=== PATIENT | female | born 1980 | race Two or more races ===

== ENCOUNTER 2018-10-03 02:34 | Emergency (ER) | payer BC ==
[~2018-10-03] VITALS: Ht 157.5 cm; Wt 52.6 kg
--- OUTSIDE RECORDS SUMMARY | 2018-10-03 02:36 | XMS REPORT ---
Author [facility] Address Unknown Phone Unavailable Care Team Providers Care [facility] Diversity Name Role Phone Unavailable Unavailable Payers Payer Name Policy Type Policy Number Effective Date Expiration Date Problems This patient has no known problems. Allergies, Adverse Reactions, Alerts Allergy Name Allergy Type Status Severity Reaction(s) Onset Date Inactive Date Treating Clinician Comments No Known Allergies DA Active U 2018-04-12 00:00:00 Medications This patient has no known medications. Results Test Description Test Time Test Comments Text Results Atomic Results Result Comments COMPREHENSIVE METABOLIC PANEL 2018-04-13 01:00:00 SODIUM (test code=NA) 137 mEq/L 134-147 POTASSIUM (test code=K) 3.4 mEq/L 3.4-5.0 CHLORIDE (test code=CL) 107 mEq/L 100-108 CARBON DIOXIDE (test code=CO2) 24 mEq/L 21-33 ANION GAP (test code=GAP) 9 0-20 GLUCOSE (test code=GLU) 114 mg/dL 70-110 BLOOD UREA NITROGEN (test code=BUN) 9 mg/dL 7-18 GLOMERULAR FILTRATION RATE (test code=GFR) 79.9 105-110 Units of measure=ml/min/1.73 m2 CREATININE (test code=CREAT) 0.8 mg/dL 0.6-1.3 TOTAL PROTEIN (test code=PROT) 8.0 g/dL 6.4-8.2 ALBUMIN (test code=ALB) 3.50 g/dL 3.4-5.0 CALCIUM (test code=CA) 8.3 mg/dL 8.0-10.5 BILIRUBIN TOTAL (test code=BILT) 0.20 mg/dL 0.0-1.0 SGOT/AST (test code=AST) 21 IUnit/L 15-37 SGPT/ALT (test code=ALT) 17 IUnit/L 15-65 ALKALINE PHOSPHATASE TOTAL (test code=ALKP) 74 IUnit/L 20-125 [id number] 01:00:00* Test Item Value Reference Range Comments LIPASE (test code=LIP) 148 IUnit/L 73-393 HCG SERUM [id number] 01:00:00* Test Item Value Reference Range Comments HCG SERUM QUAL (test code=HCGQL) SERUM NEGATIVE NEGATIVE COMPREHENSIVE METABOLIC [id number] 00:46:00* Test Item Value Reference Range Comments SODIUM (test code=NA) 137 mEq/L 134-147 POTASSIUM (test code=K) 3.4 mEq/L 3.4-5.0 CHLORIDE (test code=CL) 107 mEq/L 100-108 CARBON DIOXIDE (test code=CO2) 24 mEq/L 21-33 ANION GAP (test code=GAP) 9 0-20 GLUCOSE (test code=GLU) 114 mg/dL 70-110 BLOOD UREA NITROGEN (test code=BUN) 9 mg/dL 7-18 GLOMERULAR FILTRATION RATE (test code=GFR) 79.9 105-110 Units of measure=ml/min/1.73 m2 CREATININE (test code=CREAT) 0.8 mg/dL 0.6-1.3 TOTAL PROTEIN (test code=PROT) g/dL 6.4-8.2 ALBUMIN (test code=ALB) 3.50 g/dL 3.4-5.0 CALCIUM (test code=CA) 8.3 mg/dL 8.0-10.5 BILIRUBIN TOTAL (test code=BILT) mg/dL 0.0-1.0 SGOT/AST (test code=AST) 21 IUnit/L 15-37 SGPT/ALT (test code=ALT) 17 IUnit/L 15-65 ALKALINE PHOSPHATASE TOTAL (test code=ALKP) IUnit/L 20-125 [id number] 00:46:00* Test Item Value Reference Range Comments LIPASE (test code=LIP) 148 IUnit/L 73-393 HCG SERUM [id number] 00:46:00* Test Item Value Reference Range Comments HCG SERUM QUAL (test code=HCGQL) SERUM NEGATIVE NEGATIVE COMPREHENSIVE METABOLIC [id number] 00:41:00* Test Item Value Reference Range Comments SODIUM (test code=NA) mEq/L 134-147 POTASSIUM (test code=K) mEq/L 3.4-5.0 CHLORIDE (test code=CL) mEq/L 100-108 CARBON DIOXIDE (test code=CO2) mEq/L 21-33 ANION GAP (test code=GAP) 0-20 GLUCOSE (test code=GLU) mg/dL 70-110 BLOOD UREA NITROGEN (test code=BUN) mg/dL 7-18 GLOMERULAR FILTRATION RATE (test code=GFR) 105-110 CREATININE (test code=CREAT) mg/dL 0.6-1.3 TOTAL PROTEIN (test code=PROT) g/dL 6.4-8.2 ALBUMIN (test code=ALB) g/dL 3.4-5.0 CALCIUM (test code=CA) mg/dL 8.0-10.5 BILIRUBIN TOTAL (test code=BILT) mg/dL 0.0-1.0 SGOT/AST (test code=AST) IUnit/L 15-37 SGPT/ALT (test code=ALT) IUnit/L 15-65 ALKALINE PHOSPHATASE TOTAL (test code=ALKP) IUnit/L 20-125 [id number] 00:41:00* Test Item Value Reference Range Comments LIPASE (test code=LIP) IUnit/L 73-393 HCG SERUM [id number] 00:41:00* Test Item Value Reference Range Comments HCG SERUM QUAL (test code=HCGQL) SERUM NEGATIVE NEGATIVE URINALYSIS [id number] 00:31:00* Test Item Value Reference Range Comments UA COLOR (test code=COLU) YELLOW YEL/STRAW UA APPEARANCE (test code=APPU) SL CLOUDY CLEAR UA GLUCOSE DIPSTICK (test code=DGLUU) NEGATIVE NEGATIVE UA BILIRUBIN DIPSTICK (test code=BILU) NEGATIVE NEGATIVE UA KETONE DIPSTICK (test code=KETU) NEGATIVE NEGATIVE UA SPECIFIC GRAVITY (test code=SGU) 1.011 1.005-1.030 UA BLOOD DIPSTICK (test code=FLORIAN) NEGATIVE NEGATIVE UA PH DIPSTICK (test code=SYLVIA) 5.0 5.0-7.0 UA PROTEIN DIPSTICK (test code=PROU) NEGATIVE NEGATIVE UA UROBILINIOGEN DIPSTICK (test code=URO) 0.2 mg/dL 0.2-1.0 UA NITRITE DIPSTICK (test code=GERALDO) NEGATIVE NEGATIVE UA LEUKOCYTE ESTERASE DIPSTICK (test code=LEUU) NEGATIVE NEGATIVE UA WBC (test code=WBCU) 0-3 WBC/HPF 0-3 UA RBC (test code=RBCU) 0-3 RBC/HPF 0-3 UA BACTERIA (test code=BACU) TRACE /HPF NONE SEEN UA SQUAMOUS CELLS (test code=SQU) 0-5 /HPF NONE SEEN UA HYALINE CAST (test code=HYALU) 3-5 /LPF NONE SEEN UA MUCUS (test code=MUCU) TRACE /LPF NONE SEEN CBC W/AUTO [id number] 00:28:00* Test Item Value Reference Range Comments WHITE BLOOD CELL (test code=WBC) 2.50 x10 3/uL 4.5-11.0 RED BLOOD CELL (test code=RBC) 3.60 x10 6/uL 3.54-5.02 HEMOGLOBIN (test code=HGB) 11.2 g/dL 11.0-15.0 HEMATOCRIT (test code=HCT) 33.3 % 33.0-45.0 MEAN CELL VOLUME (test code=MCV) 92.5 fL 81.0-99.0 MEAN CELL HGB (test code=MCH) 31.1 pg 27.0-33.0 MEAN CELL HGB CONCETRATION (test code=MCHC) 33.6 g/dL 33.0-37.0 RED CELL DISTRIBUTION WIDTH CV (test code=RDW) 13.1 % 11.5-14.5 RED CELL DISTRIBUTION WIDTH SD (test code=RDW-SD) 44.4 fL 37.0-54.0 PLATELET COUNT (test code=PLT) 201 x10 3/uL 150-400 MEAN PLATELET VOLUME (test code=MPV) 9.5 fL 7.0-9.0 NEUTROPHIL % (test code=NT%) 48.8 % 56.0-77.0 IMMATURE GRANULOCYTE % (test code=IG%) 0.4 % 0.0-2.0 LYMPHOCYTE % (test code=LY%) 30.4 % 14.0-32.0 MONOCYTE % (test code=MO%) 14.4 % 4.8-9.0 EOSINOPHIL % (test code=EO%) 5.2 % 0.3-3.7 BASOPHIL % (test code=BA%) 0.8 % 0.0-2.0 NUCLEATED RBC % (test code=NRBC%) 0.0 % 0-0 NEUTROPHIL # (test code=NT#) 1.22 x10 3/uL 2.0-7.6 IMMATURE GRANULOCYTE # (test code=IG#) 0.01 x10 3/uL 0.00-0.03 LYMPHOCYTE # (test code=LY#) 0.76 x10 3/uL 1.0-3.8 MONOCYTE # (test code=MO#) 0.36 x10 3/uL 0.1-0.8 EOSINOPHIL # (test code=EO#) 0.13 x10 3/uL 0.0-0.2 BASOPHIL # (test code=BA#) 0.02 x10 3/uL 0.0-0.2 NUCLEATED RBC # (test code=NRBC#) 0.00 x10 3/uL 0.0-0.1 MANUAL DIFF REQUIRED (test code=MDIFF) NO - CT ABD PELVIS [id number] 00:00:00 Name: ANDRIACHAPARRITAFARHAT [facility] : 1980 Age/S: 37 / F [address] [place] [address] Unit #: [id number] Loc: [place] [address] Phys: Blake Adams MD Acct: [id number] Dis Date: Status: REG ER PHONE #: [phone] Exam Date: 04/13/2018 0137 FAX #: [phone] Reason: [email or web address] EXAMS: CPT CODE: [id number] CT ABD PELVIS W/CONT [id number] EXAM: CT Abdomen and Pelvis With Contrast EXAM DATE/TIME: 04/13/2018 12:35 AM CLINICAL HISTORY: 37 years old, female; Pain; Abdominal pain; Additional info: Abd. Pain TECHNIQUE: Axial computed tomography images of the abdomen and pelvis with intravenous contrast. All CT scans at this facility use at least one of these dose optimization techniques: automated exposure control; mA and/or kV adjustment per patient size (includes targeted exams where dose is matched to clinical indication); or iterative reconstruction. Coronal and sagittal reformatted images were created and reviewed. CONTRAST: 100 ml of ISO 100 administered intravenously. COMPARISON: No relevant prior studies available. FINDINGS: Lower thorax: No acute findings. ABDOMEN: Liver: Normal. No mass. Gallbladder and bile ducts: Normal. No calcified stones. No ductal dilation. Pancreas: Normal. No ductal dilation. Spleen: Normal. No splenomegaly. Adrenals: Normal. No mass. Kidneys and ureters: Normal. No hydronephrosis. Stomach and bowel: Normal. No obstruction. No mucosal thickening. Appendix: The appendix is visualized and is normal in configuration. PELVIS: Bladder: Unremarkable as visualized. Reproductive: Unremarkable as visualized. ABDOMEN and PELVIS: Intraperitoneal space: Normal. No free air. No significant fluid collection. PAGE 1 Signed Report (CONTINUED) Name: ZENY AYERS [facility] : 1980 Age/S: 37 / F [address] [place] [address] Unit #: [id number] Loc: [place] [address] Phys: Blake Adams MD Acct: [id number] Dis Date: Status: REG ER PHONE #: [phone] Exam Date: 04/13/2018 0137 FAX #: [phone] Reason: [email or web address] EXAMS: CPT CODE: [id number] ABD PELVIS W/CONT [id number] <Continued> Bones/joints: No acute fracture. No dislocation. Soft tissues: Unremarkable. Vasculature: Normal. No abdominal aortic aneurysm. Lymph nodes: Normal. No enlarged lymph nodes. IMPRESSION: No acute findings. at 0201 Reported and signed by: Valentin Juarez M.D. CC: Blake Adams MD [facility] gist:RT Brook(R) CTDI: DLP: Trnscb Date/Time: 04/13/2018 (200) [id number] Orig Print D/T: S: 04/13/2018 (200) CTDI: DLP: PAGE 2 Signed Report
[2018-10-03] MEDS ORDERED: SODIUM CHLORIDE 0.9% 1000ML 1,000 ML IV STA (02:57)
[2018-10-03] MEDS ORDERED: MAALOX/LIDOCAINE/BENADRYL/NYST 30 ML BTL PO ONE (03:00)
[2018-10-03] MEDS ORDERED: PROMETHAZINE 12.5MG/ NACL 0.9% 12.5 MG/50 ML BAG IV ONE (03:00)
[2018-10-03] MEDS ORDERED: FAMOTIDINE 20 MG/2 ML VIAL IV ONE (03:00)
[2018-10-03] MEDS ORDERED: BELLADONNA ALK/PHENOBARBITAL 5 ML UDC ONE (03:09)
[2018-10-03] MEDS ORDERED: SODIUM CHLORIDE 0.9% 1000ML 1,000 ML ONE (03:09)
[2018-10-03] MEDS ORDERED: LIDOCAINE VISC 2% SOLN 15 ML UDC ONE (03:09)
[2018-10-03] MEDS ORDERED: PROMETHAZINE HCL (IM) 25 MG/ML VIAL ONE (03:09)
[2018-10-03] MEDS ORDERED: DONNATAL/LIDOCAINE/MAALOX 30 ML SUSP PO ONE (03:15)
[2018-10-03] MEDS ORDERED: KETOROLAC TROMETHAMINE 30 MG/ML VIAL ONE (04:12)
[2018-10-03] MEDS ORDERED: KETOROLAC TROMETHAMINE 30 MG/ML VIAL IV ONE (04:15)
== END 2018-10-03 04:37 | disposition home or self-care (01) ==
LOC: FSED 02:34
DX: R10.13 Epigastric pain (principal); R10.11 Right upper quadrant pain; R11.0 Nausea; N28.9 Disorder of kidney and ureter, unspecified; M32.9 Systemic lupus erythematosus, unspecified; I73.00 Raynaud's syndrome without gangrene; Z87.11 Personal history of peptic ulcer disease
CPT/HCPCS: 80053; 80076; 81003; 81025; 85025; 99283; J1885; J2550; J7030